=== PATIENT | male | born 1985 | race Caucasian/White ===

== ENCOUNTER → 2022-03-21 | Emergency (ER) | payer BC, MEDICAID ==
[~2022-03-21] VITALS: Ht 170.2 cm; Wt 65.8 kg
[2022-03-21 01:11] VITALS: BP 127/86
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
--- NOTE | 2022-03-21 01:37 | NUR ---
CALLED [facility] FOR TRANSPORTATION ETA 75-90 MIN
--- NOTE | 2022-03-21 01:43 | NUR ---
REPORT GIVEN TO YOVANNY THE [facility] AT [facility]
--- NOTE | 2022-03-21 03:01 | NUR ---
REPORT GIVEN TO [facility]. [facility] AT PT'S BEDSIDE TO [facility] PT TO [facility] AT [facility]. VSS.
== END ==
LOC: ER 00:55
DX: Z71.1 Person with feared health complaint in whom no diagnosis is made (principal); Z88.8 Allergy status to other drugs, medicaments and biological substances